=== PATIENT | female | born 1975 | race Caucasian/White ===

== ENCOUNTER → 2020-10-25 | Outpatient (CLI) | payer MEDICAID ==
[~2020-10-25] MED LIST: ADVA1AER2; D31000TA2 PO; FAMO20TA PO; FENO135C6 PO; FURO40TA2 PO; HUMUINJ; HYDR-3716 PO; HYSI1TAB4 PO; IBUP600T; INSUH10VL SC; INSULANT; INSULIN LANTUS; LEVOTAB10 PO; LYRI200C PO; METO10TA2 PO; METO5TAB2; NALO25TA PO; PANT40TA29 PO; PREG100CA; PROM50TA; PROM50TA4 PO; REGULAR INSULIN; SING5CHW23 PO; SYMB16INH INH; TOUJ1.2I SC; VICO5TAB; VICT18IN SC
== END ==
LOC: M LABSMTC 11:13
PROVIDERS: ATTEND Anesthesiology
DX: Z01.812 Encounter for preprocedural laboratory examination (principal); Z20.822 Contact with and (suspected) exposure to COVID-19

== ENCOUNTER 2020-10-30 13:17 | Day surgery (SDC) | payer MEDICARE, MEDICAID ==
[~2020-10-30] VITALS: Ht 160 cm; Wt 75.7 kg
[~2020-10-30 13:17] MED LIST changes: +NS 1,000 ML IV ONE
[2020-10-30] MEDS ORDERED: LIDOCAINE 2% 100MG/5ML SDV (FOR ANES.) As Ordered ONE (13:45)
[2020-10-30] MEDS ORDERED: propofoL 200 MG/20 ML VIAL As Ordered ONE (14:32)
[2020-10-30] MEDS ORDERED: fentaNYL 100 MCG/2 ML INJECTION (J3010) As Ordered ONE (14:33)
--- NOTE | 2020-10-30 14:46 | ROOR ---
Patient Name: Julissa Escamilla Procedure Date: 10/30/2020 2:30 PM Date of : 1975 Age: 45 [facility]: [facility] Gender: Female Note Status: Finalized Procedure: Upper GI endoscopy Indications: Heartburn Providers: Galo ROJAS MD Referring MD: RAVINDRA BAIRES MD Requesting Provider: Medicines: Monitored Anesthesia Care Complications: No immediate complications. Procedure: Pre-Anesthesia Assessment: - The heart rate, respiratory rate, oxygen saturations, blood pressure, adequacy of pulmonary ventilation, and response to care were monitored throughout the procedure. The Endoscope was introduced through the mouth, and advanced to the second part of duodenum. The patient tolerated the procedure well. The upper GI endoscopy was performed with difficulty due to presence of food. Successful completion of the procedure was aided by suctioning. Visualisation was inadequate. Findings: The examined esophagus was normal. A large amount of food (residue) was found in the entire examined stomach precluding adequate visualisation The first portion of the duodenum was normal. Impression: - Normal esophagus. - A large amount of food (residue) in the stomach (Gastroparesis), precluding good visualisation. - Normal first portion of the duodenum. (no obstruction) - No specimens collected. Recommendation: - Gastroparesis diet: - Eat smaller, more frequent meals throughout the day. - Low fat diet. - Liquid/soft foods are tolerated better than solid foods. - Low fiber/well cooked vegetables are tolerated better than high fiber/fibrous foods/raw vegetables. - Avoid medications that inhibit gastric/intestinal motility such as narcotic medications. - Repeat upper endoscopy at the next available appointment. - My office will call you to reschedule the procedure. Procedure Code(s): --- Professional --- 37343, Esophagogastroduodenoscopy, flexible, transoral; diagnostic, including collection of specimen(s) by brushing or washing, when performed (separate procedure) Diagnosis Code(s): --- Professional --- R12, Heartburn CPT copyright 2019 [employer]. All rights reserved. The codes documented in this report are preliminary and upon valve steamer review may be revised to meet current compliance requirements. Galo Rojas MD Galo ROJAS MD 10/30/2020 2:46:44 PM Electronically signed by Galo ROJAS MD Number of Addenda: 0 Note Initiated On: 10/30/2020 2:30 PM Estimated Blood Loss: Estimated blood loss: none.
[2020-10-30 15:00] VITALS: BP 139/73
== END 2020-10-30 15:01 | disposition home or self-care (01) ==
LOC: M OPP 13:17
PROVIDERS: ATTEND Internal Medicine Gastroenterology
DX: R12 Heartburn (principal); K25.9 Gastric ulcer, unspecified as acute or chronic, without hemorrhage or perforation; K31.84 Gastroparesis; E10.9 Type 1 diabetes mellitus without complications; K21.9 Gastro-esophageal reflux disease without esophagitis; G47.30 Sleep apnea, unspecified; J45.909 Unspecified asthma, uncomplicated; G89.29 Other chronic pain; Z88.0 Allergy status to penicillin; Z88.6 Allergy status to analgesic agent; Z79.4 Long term (current) use of insulin; Z79.899 Other long term (current) drug therapy; Z80.0 Family history of malignant neoplasm of digestive organs; Z80.3 Family history of malignant neoplasm of breast; Z80.52 Family history of malignant neoplasm of bladder
CPT/HCPCS: 43235; J3010

== ENCOUNTER → 2020-12-17 | Outpatient (CLI) | payer MEDICARE, MEDICAID ==
[~2020-12-17] MED LIST changes: -NS 1,000 ML IV ONE
== END ==
LOC: M LABSMTC 08:47
PROVIDERS: ATTEND Anesthesiology
DX: Z01.812 Encounter for preprocedural laboratory examination (principal); Z20.822 Contact with and (suspected) exposure to COVID-19

== ENCOUNTER 2020-12-22 07:50 | Day surgery (SDC) | payer MEDICARE, MEDICAID ==
[~2020-12-22] VITALS: Ht 160 cm; Wt 84.1 kg
[~2020-12-22 07:50] MED LIST changes: +NS 1,000 ML IV ONE; +fentaNYL 100 MCG/2 ML INJECTION (J3010) As Ordered ONE
[2020-12-22] MEDS ORDERED: D5W 1000ML IV ONE (08:35)
[2020-12-22] MEDS ORDERED: propofoL 200 MG/20 ML VIAL As Ordered ONE (08:41)
[2020-12-22] MEDS ORDERED: LIDOCAINE 2% 100MG/5ML SDV (FOR ANES.) As Ordered ONE (08:41)
--- NOTE | 2020-12-22 08:48 | ROOR ---
Patient Name: Julissa Escamilla Procedure Date: 12/22/2020 8:33 AM Date of : 1975 Age: 45 Room: [facility] Gender: Female Note Status: Finalized Procedure: Upper GI endoscopy Indications: Epigastric abdominal pain, Gastroparesis Providers: Galo ROJAS MD Referring MD: RAVINDRA BAIRES MD Requesting Provider: Medicines: Monitored Anesthesia Care Complications: No immediate complications. Procedure: Pre-Anesthesia Assessment: - The heart rate, respiratory rate, oxygen saturations, blood pressure, adequacy of pulmonary ventilation, and response to care were monitored throughout the procedure. The Endoscope was introduced through the mouth, and advanced to the second part of duodenum. The upper GI endoscopy was performed with difficulty due to presence of food. Successful completion of the procedure was aided by lavage. The patient tolerated the procedure well. Findings: A large amount of food (residue) was found in the entire examined stomach. Lavage of the area was performed, resulting in clearance with fair visualization. No gross lesions were noted in the entire examined stomach. The examined esophagus was normal. The examined duodenum was normal. Impression: - A large amount of food (residue) in the stomach. /Gastroparesis - No gross lesions in the stomach. - Normal esophagus. - Normal examined duodenum. - No specimens collected. Recommendation: - Observe patient's clinical course. - Gastroparesis diet: - Eat smaller, more frequent meals throughout the day. - Low fat diet. - Liquid/soft foods are tolerated better than solid foods. - Low fiber/well cooked vegetables are tolerated better than high fiber/fibrous foods/raw vegetables. - Avoid medications that inhibit gastric/intestinal motility such as narcotic medications. - Return to referring physician as previously scheduled. Procedure Code(s): --- Professional --- 45525, Esophagogastroduodenoscopy, flexible, transoral; diagnostic, including collection of specimen(s) by brushing or washing, when performed (separate procedure) Diagnosis Code(s): --- Professional --- K31.84, Gastroparesis R10.13, Epigastric pain CPT copyright 2019 [employer]. All rights reserved. The codes documented in this report are preliminary and upon computer language coder review may be revised to meet current compliance requirements. Galo Rojas MD Galo ROJAS MD 12/22/2020 8:48:00 AM Electronically signed by Galo ROJAS MD Number of Addenda: 0 Note Initiated On: 12/22/2020 8:33 AM Estimated Blood Loss: Estimated blood loss: none.
[2020-12-22 09:10] VITALS: BP 127/66
== END 2020-12-22 09:11 | disposition home or self-care (01) ==
LOC: M OPP 07:50
PROVIDERS: ATTEND Internal Medicine Gastroenterology
DX: K31.84 Gastroparesis (principal); R10.13 Epigastric pain; E11.9 Type 2 diabetes mellitus without complications; G47.30 Sleep apnea, unspecified; Z79.4 Long term (current) use of insulin; Z79.891 Long term (current) use of opiate analgesic; Z79.899 Other long term (current) drug therapy; Z88.0 Allergy status to penicillin; Z88.8 Allergy status to other drugs, medicaments and biological substances; Z91.013 Allergy to seafood; Z91.018 Allergy to other foods; Z80.0 Family history of malignant neoplasm of digestive organs
CPT/HCPCS: 43235; J3010